=== PATIENT | male | born 1945 | race Hispanic/Latino ===

== ENCOUNTER 2018-06-21 13:51 | Inpatient (IN) | payer MEDICARE ==
[2018-06-21 13:51] VITALS: PULSE 54
--- NOTE | 2018-06-21 14:46 | ED PDOC ---
Arrival/HPI - General Historian: Patient - History of Present Illness Narrative History of Present Illness (Text): 06/21/18 14:42 A 73 year old male, whose past medical history includes CHF and A- Fib, on Coumadin, presents to the emergency department with a complaint of nausea, vomiting, diarrhea. Patient reports that his symptoms started last night. He states that his niece was having vomiting and diarrhea all day yesterday in the house and now he is feeling sick. He reports 7 episodes of vomiting and 12 episodes of diarrhea. Pt denies hematochezia or hematemesis. He also states that he feels fatigued and a dry mouth. The patient notes that he has had a dry cough for about 2 months with mild nasal congestion. Patient with a history of chronic back pain, which patient states was diagnosed as sciatica. He reports not taking any medications for his symptoms. Patient is concerned because he has been unable to take his daily medications due to the recurrent vomiting. He denies fevers, chills, headache, dizziness, chest pain, shortness of breath, dyspnea on exertion, cough, abdominal pain, neck pain, urinary changes, or any other complaint. Time/Duration: Other (Last Night) Symptom Onset: Sudden Symptom Course: Unchanged Activities at Onset: Rest, Light Context: Home <Denise Salcedo - Last Filed: 06/21/18 20:12> <Adonis Triana - Last Filed: 06/22/18 12:38> - General Chief Complaint: GI Problem Time Seen by Provider: 06/21/18 13:55 Past Medical History - Provider Review Nursing Documentation Reviewed: Yes - Infectious Disease Hx of Infectious Diseases: None - Cardiac Hx Congestive Heart Failure: Yes - Pulmonary Hx Respiratory Disorders: Yes Hx Chronic Obstructive Pulmonary Disease (COPD): Yes - Neurological Hx Paralysis: No - HEENT Hx HEENT Disorder: Yes (using eye glasses) - Renal Hx Renal Disorder: No - Endocrine/Metabolic Hx Endocrine Disorders: Yes Hx Hypothyroidism: Yes - Hematological/Oncological Hx Blood Transfusions: No Hx Blood Transfusion Reaction: No - Integumentary Hx Dermatological Disorder: No - Musculoskeletal/Rheumatological Hx Musculoskeletal Disorders: Yes (pain left hip) - Gastrointestinal Hx Gastrointestinal Disorders: No - Genitourinary/Gynecological Hx Genitourinary Disorders: No - Psychiatric Hx Psychophysiologic Disorder: No Hx Substance Use: No - Anesthesia Hx Anesthesia Reactions: No Hx Malignant Hyperthermia: No <Denise Salcedo - Last Filed: 06/21/18 20:12> Family/Social History - Physician Review Nursing Documentation Reviewed: Yes Family/Social History: No Known Family HX Smoking Status: Never Smoked Hx Alcohol Use: Yes (QUIT X 1 MONTH) Hx Substance Use: No <Denise Salcedo - Last Filed: 06/21/18 20:12> Allergies/Home Meds <Denise Salcedo - Last Filed: 06/21/18 20:12> <Adonis Triana - Last Filed: 06/22/18 12:38> Allergies/Adverse Reactions: Allergies No Known Allergies Allergy (Verified 04/06/15 13:40) Home Medications: Home Meds Medication Instructions Recorded Confirmed Warfarin [Coumadin] 5 mg PO DAILY 04/06/15 06/21/18 Amlodipine Besylate [Norvasc] 5 mg PO DAILY 11/28/15 06/21/18 Furosemide [Lasix] 40 mg PO DAILY 11/28/15 06/21/18 Levothyroxine [Synthroid] 112 mcg PO DAILY 11/28/15 06/21/18 RX: Benazepril HCl 20 mg PO DAILY 11/28/15 06/21/18 RX: Metoprolol Tartrate 50 mg PO BID 11/28/15 06/21/18 RX: Pravastatin Sodium 20 mg PO DAILY 11/28/15 06/21/18 Review of Systems - Physician Review All systems were reviewed & negative as marked: Yes - Review of Systems Constitutional: Fatigue, Fevers ENT: Sinus Congestion. absent: Sore Throat Respiratory: Cough (x 2 months). absent: SOB Cardiovascular: absent: Chest Pain, TORRES Gastrointestinal: Diarrhea, Nausea, Vomiting. absent: Abdominal Pain, Hematochezia, Hematemesis Genitourinary Male: absent: Dysuria, Frequency, Hematuria, Urinary Output Changes Musculoskeletal: Back Pain. absent: Arthralgias, Neck Pain Neurological: absent: Headache, Dizziness Psychiatric: absent: Anxiety, Depression <Denise Salcedo - Last Filed: 06/21/18 20:12> Physical Exam Vital Signs Reviewed: Yes Vital Signs Temp Pulse Resp BP Pulse Ox 06/21/18 13:52 100.8 F H 105 H 20 137/95 H 95 Temperature: Febrile Blood Pressure: Hypertensive Pulse: Tachycardic Respiratory Rate: Normal Appearance: Positive for: Well-Appearing, Non-Toxic, Comfortable Pain Distress: None Mental Status: Positive for: Alert and Oriented X 3 - Systems Exam Head: Present: Atraumatic, Normocephalic Pupils: Present: PERRL Extroacular Muscles: Present: EOMI Conjunctiva: Present: Normal Mouth: Present: Dry, Normal Lips. No: Moist Mucous Membranes, Drooling, Trismus Pharnyx: Present: Normal Nose (External): Present: Atraumatic Nose (Internal): Present: Normal Inspection, Clear Mucous Neck: Present: Normal Range of Motion Respiratory/Chest: Present: Clear to Auscultation, Good Air Exchange. No: Respiratory Distress, Accessory Muscle Use Cardiovascular: Present: Tachycardic. No: Murmurs Abdomen: Present: Normal Bowel Sounds. No: Tenderness (Non-tender), Distention, Peritoneal Signs, Rebound, Guarding Rectal: Present: Occult Blood, Normal Rectal Tone. No: Gross Blood, Melena, Hemorrhoids, Fissures Back: Present: Normal Inspection (Non-tender) Upper Extremity: Present: Normal Inspection. No: Cyanosis, Edema Lower Extremity: Present: Normal Inspection. No: Edema Neurological: Present: GCS=15, Speech Normal Skin: Present: Warm, Dry, Normal Color. No: Rashes Psychiatric: Present: Alert, Oriented x 3 <AzoiaDenise T - Last Filed: 06/21/18 20:12> Vital Signs Temp Pulse Resp BP Pulse Ox 06/21/18 19:01 72 19 118/52 L 97 06/21/18 18:08 18 06/21/18 17:42 88 127/60 06/21/18 17:35 99 H 19 127/60 94 L 06/21/18 16:25 100.1 F H 110 H 20 113/66 95 06/21/18 16:00 103 H 20 115/64 96 06/21/18 15:40 111 H 20 136/79 96 06/21/18 15:25 99 H 20 129/57 L 94 L 06/21/18 15:00 117 H 20 125/65 92 L 06/21/18 14:15 101 H 19 137/95 H 93 L 06/21/18 13:52 100.8 F H 105 H 20 137/95 H 95 <TolericoAdonis - Last Filed: 06/22/18 12:38> Medical Decision Making ED Course and Treatment: 06/21/18 14:47 A 73 year old male presents to the emergency department with a complaint of nausea, vomiting,diarrhea since last night. 18 month old child with same symptoms yesterday. Plan: -- EKG -- Chest X-ray -- Urinalysis -- Blood/ Urine Culture -- Labs -- Tylenol, Zofran, and IV Fluids -- Reassess and disposition Progress Notes: abdomen is soft non tender, non distended. 06/21/18 15:08 code sepsis called. pt given 250cc ns bolus; pt was not given 30cc/kg fluids as patient has hx of chf with BNP of 1970 in er. 06/21/18 15:56 UA: blood and urine cultures pending; pt started on vancomycin and zosyn. case discussed with dr. muir; accepts admission pt with heme positive stools; INR 5.66. pt doubled up his coumadin friday night. vitamin K IV ordered. case discussed with dr. muir; she does not want Vitamin k to be given. will cancel vitamin k. at this point and hold coumadin. impression: sepsis, nausea/vomiting, diarrhea supratherapeutic INR admit. - Lab Interpretations I have reviewed the lab results: Yes - RAD Interpretation Radiology Orders: 06/21/18 14:33 CHEST PORTABLE [RAD] Stat - EKG Interpretation Interpreted by ED Physician: Yes Type: 12 lead EKG - Medication Orders Current Medication Orders: Sodium Chloride (Sodium Chloride 0.9%) 250 mls @ 250 mls/hr IV .Q1H MISSY Ondansetron HCl (Zofran Inj) 4 mg IVP STAT STA Stop: 06/21/18 14:41 Discontinued Medications Acetaminophen (Tylenol 325mg Tab) 975 mg PO STAT STA Stop: 06/21/18 14:36 <Denise Salcedo - Last Filed: 06/21/18 20:12> - Lab Interpretations Lab Results: pO2 152 mm/Hg (30-55) H 06/21/18 17:35 VBG pH 7.46 (7.32-7.43) H 06/21/18 17:35 VBG pCO2 33.0 (40-60) L 06/21/18 17:35 VBG HCO3 23.5 mmol/l (21-28) 06/21/18 17:35 VBG Total CO2 24.5 mmol.L (22-28) 06/21/18 17:35 VBG O2 Sat (Calc) 99.4 % (40-65) H 06/21/18 17:35 VBG Base Excess 0.3 mmol/L (0.0-2.0) 06/21/18 17:35 VBG Potassium 3.5 mmol/L (3.6-5.2) L 06/21/18 17:35 Sodium 138.0 mmol/L (132-148) 06/21/18 17:35 Chloride 104.0 mmol/L (98-107) 06/21/18 17:35 Glucose 126 mg/dl (75-110) H 06/21/18 17:35 Lactate 1.4 mmol/L (0.7-2.1) 06/21/18 17:35 FiO2 21.0 % 06/21/18 17:35 PT 80.9 SECONDS (9.4-12.5) H 06/22/18 05:30 INR 6.77 H* 06/22/18 05:30 APTT 46.6 Seconds (25.1-36.5) H 06/22/18 05:30 Troponin I < 0.01 ng/mL 06/21/18 14:25 NT-Pro-B Natriuret Pep 1970 pg/mL (0-450) H 06/21/18 14:25 Total Bilirubin 0.5 mg/dL (0.2-1.3) 06/22/18 05:30 AST 26 U/L (17-59) 06/22/18 05:30 ALT 36 U/L (7-56) 06/22/18 05:30 Alkaline Phosphatase 65 U/L (38-126) 06/22/18 05:30 Total Protein 6.3 g/dL (5.8-8.3) 06/22/18 05:30 Albumin 3.4 g/dL (3.0-4.8) 06/22/18 05:30 Globulin 2.9 gm/dL 06/22/18 05:30 Albumin/Globulin Ratio 1.1 (1.1-1.8) 06/22/18 05:30 Urine Color Dark yellow (YELLOW) 06/21/18 18:50 Urine Appearance Slight-cloudy (CLEAR) 06/21/18 18:50 Urine pH 8.5 (4.7-8.0) 06/21/18 18:50 Ur Specific [place] 1.015 (1.005-1.035) 06/21/18 18:50 Urine Protein 100 mg/dL (<30 mg/dL) H 06/21/18 18:50 Urine Glucose (UA) 100 mg/dL (NEGATIVE) H 06/21/18 18:50 Urine Ketones Trace mg/dL (NEGATIVE) H 06/21/18 18:50 Urine Blood Negative (NEGATIVE) 06/21/18 18:50 Urine Nitrate Positive (NEGATIVE) H 06/21/18 18:50 Urine Bilirubin Small (NEGATIVE) H 06/21/18 18:50 Urine Urobilinogen 1.0 E.U./dL (<1 E.U./dL) H 06/21/18 18:50 Ur Leukocyte Esterase Trace Shane/uL (NEGATIVE) H 06/21/18 18:50 Urine RBC Negative /hpf (0-2) 06/21/18 18:50 Urine WBC 0 - 2 /hpf (0-6) 06/21/18 18:50 Ur Epithelial Cells 0 - 2 /hpf (0-5) 06/21/18 18:50 Urine Bacteria Mod /hpf (NONE) 06/21/18 18:50 Hyaline Casts 0 - 2 /hpf (NONE) 06/21/18 18:50 Fine Granular Casts 0 - 2 /hpf (NONE) 06/21/18 18:50 - RAD Interpretation Radiology Orders: 06/21/18 14:33 CHEST PORTABLE [RAD] Stat - Medication Orders Current Medication Orders: Acetaminophen (Tylenol 325mg Tab) 650 mg PO Q6H PRN PRN Reason: Pain, Mild (1-3) Amlodipine Besylate (Norvasc) 5 mg PO DAILY [facility] Last Admin: 06/22/18 09:10 Dose: 5 mg MAR Pulse and Blood Pressure Document 06/22/18 09:10 HG (Rec: 06/22/18 09:10 HG [id number]) Pulse Pulse Rate (60-90) 107 Blood Pressure Blood Pressure (100/60-150/90) 126/80 Atorvastatin Calcium (Lipitor) 10 mg PO DAILY [facility] Furosemide (Lasix) 40 mg PO DAILY [facility] Last Admin: 06/22/18 09:09 Dose: 40 mg MAR Blood Pressure Document 06/22/18 09:09 HG (Rec: 06/22/18 09:09 HG [id number]) Blood Pressure Blood Pressure (100/60-150/90) 126/80 Ceftriaxone Sodium (Rocephin 1 Gram Ivpb) 1 gm in 100 mls @ 100 mls/hr IVPB DAILY [facility]; Protocol Last Admin: 06/22/18 09:10 Dose: 100 mls/hr eMAR Start Stop Document 06/22/18 09:10 HG (Rec: 06/22/18 09:10 HG [id number]) Intravenous Solution Start Date 06/22/18 Start Time 09:10 End Date 06/22/18 End time 10:10 Total Infusion Time 60 Metronidazole (Flagyl) 500 mg in 100 mls @ 100 mls/hr IVPB Q8 MISSY; Protocol Last Admin: 06/22/18 06:06 Dose: 100 mls/hr eMAR Start Stop Document 06/22/18 06:06 KOPPS (Rec: 06/22/18 06:06 KOPPS [id number]) Intravenous Solution Start Date 06/22/18 Start Time 06:06 End Date 06/22/18 End time 07:06 Total Infusion Time 60 Levothyroxine Sodium (Synthroid) 112 mcg PO 0600 [facility] Last Admin: 06/22/18 06:06 Dose: 112 mcg Lisinopril (Zestril) 10 mg PO DAILY [facility] Last Admin: 06/22/18 09:09 Dose: 10 mg MAR Pulse and Blood Pressure Document 06/22/18 09:09 HG (Rec: 06/22/18 09:09 HG [id number]) Pulse Pulse Rate (60-90) 107 Blood Pressure Blood Pressure (100/60-150/90) 126/80 Metoprolol Tartrate (Lopressor) 50 mg PO BID [facility] Last Admin: 06/22/18 11:12 Dose: 50 mg MAR Pulse and Blood Pressure Document 06/22/18 11:12 HG (Rec: 06/22/18 11:12 HG [id number]) Pulse Pulse Rate (60-90) 97 Blood Pressure Blood Pressure (100/60-150/90) 126/80 Discontinued Medications Acetaminophen (Tylenol 325mg Tab) 975 mg PO STAT STA Stop: 06/21/18 14:36 Last Admin: 06/21/18 15:03 Dose: 975 mg MAR Pain/Vitals Document 06/21/18 15:03 EB (Rec: 06/21/18 15:03 [email or web address]) Pain Reassessment Is This A Pain ReAssessment? No Sleep Is patient sleeping during reassessment? No Re-Assess: MAR Pain/Vitals Document 06/21/18 16:03 EB (Rec: 06/21/18 17:41 EB [id number]) Presence of Pain Presence of Pain No Sodium Chloride (Sodium Chloride 0.9%) 250 mls @ 250 mls/hr IV .Q1H MISSY Stop: 06/21/18 15:45 Last Admin: 06/21/18 15:45 Dose: Not Given Non-Admin Reason: only need 1 bolus Piperacillin Sod/Tazobactam Sod (Zosyn 3.375 In Ns 100ml) 100 mls @ 200 mls/hr IVPB STAT STA; Protocol Stop: 06/21/18 16:05 Last Admin: 06/21/18 16:22 Dose: 200 mls/hr eMAR Start Stop Document 06/21/18 16:22 EB (Rec: 06/21/18 16:22 [email or web address]) Intravenous Solution Start Date 06/21/18 Start Time 16:22 End Date 06/21/18 End time 17:22 Total Infusion Time 60 Vancomycin HCl (Vancomycin 1gm) 1 gm in 250 mls @ 167 mls/hr IVPB STAT STA; Protocol Stop: 06/21/18 17:19 Last Admin: 06/21/18 16:27 Dose: 167 mls/hr eMAR Start Stop Document 06/21/18 16:27 EB (Rec: 06/21/18 16:28 [email or web address]) Intravenous Solution Start Date 06/21/18 Start Time 16:57 Metoprolol Tartrate (Lopressor) 50 mg PO STAT STA Stop: 06/21/18 16:59 Last Admin: 06/21/18 17:42 Dose: 50 mg MAR Pulse and Blood Pressure Document 06/21/18 17:42 EB (Rec: 06/21/18 17:42 [email or web address]) Pulse Pulse Rate (60-90) 88 Blood Pressure Blood Pressure (100/60-150/90) 127/60 Ondansetron HCl (Zofran Inj) 4 mg IVP STAT STA Stop: 06/21/18 14:41 Last Admin: 06/21/18 15:03 Dose: 4 mg IVP Administration Document 06/21/18 15:03 EB (Rec: 06/21/18 15:03 [email or web address]) Charges for Administration # of IVP Administrations 1 <Adonis Triana - Last Filed: 06/22/18 12:38> - Scribe Statement The provider has reviewed the documentation as recorded by the Scribe Mera Shaffer Provider Fatouibe Attestation: All medical record entries made by the Scribe were at my direction and personally dictated by me. I have reviewed the chart and agree that the record accurately reflects my personal performance of the history, physical exam, medical decision making, and the department course for this patient. I have also personally directed, reviewed, and agree with the discharge instructions and disposition. <Denise Salcedo - Last Filed: 06/21/18 20:12> - PA / SCRUB TECH / Resident Statement MD/ has reviewed & agrees with the documentation as recorded. <Adonis Triana - Last Filed: 06/22/18 12:38> Disposition/Present on Arrival - Present on Arrival Any Indicators Present on Arrival: No History of DVT/PE: No History of Uncontrolled Diabetes: No Urinary Catheter: No History of Decub. Ulcer: No History Surgical Site Infection Following: None - Disposition Have Diagnosis and Disposition been Completed?: Yes Disposition Time: 15:08 Patient Plan: Observation <Denise Salcedo - Last Filed: 06/21/18 20:12> <Adonis Triana - Last Filed: 06/22/18 12:38> - Disposition Diagnosis: Sepsis, Nausea vomiting and diarrhea, Supratherapeutic INR Disposition: HOSPITALIZED Patient Problems: Current Active Problems Problem Status Onset Nausea vomiting and diarrhea Acute Sepsis Acute Supratherapeutic INR Acute Condition: FAIR
[2018-06-21 14:50] LABS: GRAN # 9.34 (1.4-6.5); GRAN % 95.5 % (50.0-68.0); HEMOGLOBIN 16.2 g/dL (14.0-18.0); LYMPH # 0.3 (1.2-3.4); LYMPH % 3.3 % (22.0-35.0); MEAN CELL VOLUME 97.5 fl (80.0-105.0); MEAN CORPUSCULAR HEMOGLOBIN 33.5 pg (25.0-35.0); MEAN CORPUSCULAR HGB CONC 34.3 g/dl (31.0-37.0); MEAN PLATELET VOLUME 9.9 fl (7.0-11.0); MONO # 0.1 (0.1-0.6); MONO % 1.2 % (1.0-6.0); PLATELET COUNT 193 10^3/uL (120.0-450.0); RBC 4.84 10^6/uL (3.5-6.1); RED CELL DISTRIBUTION WIDTH 13.3 % (11.5-14.5); WHITE BLOOD COUNT 9.8 10^3/uL (4.5-11.0)
[2018-06-21 14:53] LABS: VENOUS BLOOD GAS BASE EXCESS -2.3 mmol/L (0.0-2.0); VENOUS BLOOD GAS PO2 84 mm/Hg (30-55); VENOUS BLOOD PH 7.43 (7.32-7.43)
[2018-06-21] MEDS: Sodium Chloride 0.9% 250 ML IV SCH ×2 (15:04→15:45)
--- NOTE | 2018-06-21 15:07 | RAD ---
Date of service: 06/21/2018 HISTORY: cough/fever/vomiting COMPARISON: 04/08/2015 FINDINGS: LUNGS: No active pulmonary disease. PLEURA: No significant pleural effusion identified, no pneumothorax apparent. CARDIOVASCULAR: No aortic atherosclerotic calcification present. Mild cardiomegaly no pulmonary vascular congestion. OSSEOUS STRUCTURES: No significant abnormalities. VISUALIZED UPPER ABDOMEN: Normal. OTHER FINDINGS: None. IMPRESSION: No active disease.
[2018-06-21 15:09] LABS: PARTIAL THROMBOPLASTIN TIME 43.3 Seconds (25.1-36.5)
--- NOTE | 2018-06-21 15:10 | PCM.SEPTIC ---
Sepsis Progress Note - Reassessment Type Date of Evaluation: 06/21/18 Time of Evaluation: 19:13 Reassessment Type: Non-invasive reassessment - Non Invasive Reassessment Were the most recent vital sign reviewed: Yes Vital Sign (Latest): Temp Pulse Resp BP Pulse Ox 100.8 F H 105 H 20 137/95 H 95 06/21/18 13:52 06/21/18 13:52 06/21/18 13:52 06/21/18 13:52 06/21/18 13:52 Cardiovascular: Yes: Regular Rate, Rhythm. No: Edema, Murmur Respiratory: Yes: Normal Breath Sounds. No: Accessory Muscle Use Capillary Refill: Normal (Less than 2 sec) Skin: Normal Color, Warm, Dry - Invasive Reassessment (complete 2 of 4) Was a Central Venous Pressure Measurement obtained within 6 Hours after the presentation of septic shock: No Was a central venous oxygen measurement obtained within 6 hours after the presentation of septic shock: No Was a bedside cardiovascular ultrasound performed within 6 hours after the presentation of septic shock: No Was a passive leg raise performed or was a fluid challenge performed within 6 hrs of the initial fluid bolus: No Fluid Challenge performed: Yes
[2018-06-21 15:12] LABS: ALB/GLOB RATIO 1.4 (1.1-1.8); ALBUMIN 4.2 g/dL (3.0-4.8); ALT/SGPT 30 U/L (7-56); AST/SGOT 27 U/L (17-59); BLOOD UREA NITROGEN 22 mg/dL (7-21); CALCIUM 9.5 mg/dL (8.4-10.5); GFR NON-AFRICAN AMERICAN 59
[2018-06-21 15:13] LABS: B-TYPE NATRIURETIC PEPTIDE 1970 pg/mL (0-450); TROPONIN I < 0.01 ng/mL
[2018-06-21 15:25] LABS: LYMPHOCYTE 4 % (22.0-35.0); MONOCYTE 1 % (1.0-6.0); NEUTROPHIL 95 % (50.0-70.0)
[2018-06-21 15:26] LABS: ANISOCYTOSIS SLIGHT; PLATELET ESTIMATE NORMAL (NORMAL)
[2018-06-21] MEDS ORDERED: Piperacillin/Tazobact 3.375 gm 100 ML IVPB STA (15:36)
[2018-06-21] MEDS ORDERED: Vancomycin 1gm in NS 250ml 1 GM/250 ML BAG IVPB STA (15:50)
[2018-06-21 16:01] LABS: INR 5.66; PROTHROMBIN TIME 66.8 SECONDS (9.4-12.5)
[2018-06-21] MEDS ORDERED: Phytonadione 10 MG in Sodium Chloride 0.9% 50 ML IV ONE (16:53)
[2018-06-21] MEDS ORDERED: Sodium Chloride 0.9% 1,000 ML IV STA (16:54)
--- NOTE | 2018-06-21 17:14 | CP.PCM.HP ---
<HarishValentino Jan - Last Filed: 06/21/18 17:51> History of Present Illness - History of Present Illness History of Present Illness: Valentino Moreira PGY1, History and Physical for Dr Tang Pt is a 73yo male with a PMH of HTN, hypothyroidsim, HLD, CHF, atrial fibrillation on Coumadin, who presents to the emergency department with the complaint of nausea, vomiting, diarrhea. Patient reports that his symptoms started last night. He states that his 18 month old niece was vomiting and diarrhea all day yesterday in the house and now he is feeling sick. He reports 7 episodes of vomiting and 12 episodes of diarrhea. Pt denies blood in his vomit or in the stool. Pt did not try anything to make the symptoms better. Pt states he forgot to take his coumadin , and took an extra dose Friday morning. Pt denies fever, chills, dizziness, chest pain, or SOB. PMH: HTN, hypothyroidsim, HLD, CHF, atrial fibrillation on Coumadin PSH: denies FH: mother 88 dementia, father 56 lung cancer SH: denies tobacco, denies alcohol, denies drugs, lives with his cousin in [place], retired [employer] Home meds: warfarin 5, pravastatin 20, metoprolol 50 BID, levothyroxine 112, lasix 40PO, Benazepril 20, amlodipine 5 PMD: Dr Florez Cardio: Dr Carranza Present on Admission - Present on Admission Any Indicators Present on Admission: No Review of Systems - Review of Systems Review of Systems: a 12 point ROS was obtained and added to the HPI where appropriate Past Patient History - Infectious Disease Hx of Infectious Diseases: None - Past Social History Smoking Status: Never Smoked - CARDIAC Hx Congestive Heart Failure: Yes - PULMONARY Hx Respiratory Disorders: Yes Hx Chronic Obstructive Pulmonary Disease (COPD): Yes - NEUROLOGICAL Hx Paralysis: No - HEENT Hx HEENT Problems: Yes (using eye glasses) - RENAL Hx Chronic Kidney Disease: No - ENDOCRINE/METABOLIC Hx Endocrine Disorders: Yes Hx Hypothyroidism: Yes - HEMATOLOGICAL/ONCOLOGICAL Hx Blood Transfusions: No Hx Blood Transfusion Reaction: No - INTEGUMENTARY Hx Dermatological Problems: No - MUSCULOSKELETAL/RHEUMATOLOGICAL Hx Musculoskeletal Disorders: Yes (pain left hip) - GASTROINTESTINAL Hx Gastrointestinal Disorders: No - GENITOURINARY/GYNECOLOGICAL Hx Genitourinary Disorders: No - PSYCHIATRIC Hx Psychophysiologic Disorder: No Hx Substance Use: No - SURGICAL HISTORY Hx Surgeries: Yes - ANESTHESIA Hx Anesthesia Reactions: No Hx Malignant Hyperthermia: No Meds Allergies/Adverse Reactions: Allergies Allergy/AdvReac Type Severity Reaction Status Date / Time No Known Allergies Allergy Verified 04/06/15 13:40 Physical Exam - Head Exam Head Exam: ATRAUMATIC, NORMOCEPHALIC - Eye Exam Eye Exam: EOMI, PERRL - ENT Exam ENT Exam: Mucous Membranes Moist - Neck Exam Neck exam: Positive for: Normal Inspection - Respiratory Exam Respiratory Exam: Clear to Auscultation Bilateral, NORMAL BREATHING PATTERN - Cardiovascular Exam Cardiovascular Exam: +S1, +S2. absent: Diastolic murmur, Systolic Murmur - GI/Abdominal Exam GI & Abdominal Exam: Normal Bowel Sounds, Soft - Extremities Exam Extremities exam: Positive for: full ROM. Negative for: calf tenderness, pedal edema - Neurological Exam Neurological exam: Alert, Oriented x3 - Psychiatric Exam Psychiatric exam: Normal Affect, Normal Mood - Skin Skin Exam: Dry, Intact, Warm Results - Vital Signs Recent Vital Signs: Last Vital Signs Temp 100.1 F H 06/21/18 16:25 Pulse 110 H 06/21/18 16:25 Resp 20 06/21/18 16:25 BP 113/66 06/21/18 16:25 Pulse Ox 95 06/21/18 16:25 - Labs Result Diagrams: 06/21/18 14:25 06/21/18 14:25 Labs: Laboratory Results - last 24 hr 06/21/18 06/21/18 06/21/18 14:25 14:25 14:25 WBC 9.8 RBC 4.84 Hgb 16.2 Hct 47.2 MCV 97.5 MCH 33.5 MCHC 34.3 RDW 13.3 Plt Count 193 MPV 9.9 Gran % 95.5 H Lymph % (Auto) 3.3 L [place] % (Auto) 1.2 Eos % (Auto) 0.0 L Baso % (Auto) 0.0 Gran # 9.34 H Lymph # (Auto) 0.3 L [place] # (Auto) 0.1 Eos # (Auto) 0.0 Baso # (Auto) 0.00 Neutrophils % (Manual) 95 H Lymphocytes % (Manual) 4 L Monocytes % (Manual) 1 Platelet Evaluation Normal Anisocytosis (manual) Slight PT INR APTT pO2 84 H VBG pH 7.43 VBG pCO2 32.0 L VBG HCO3 21.2 VBG Total CO2 22.2 VBG O2 Sat (Calc) 98.0 H VBG Base Excess -2.3 L VBG Potassium 3.6 Sodium 136.0 137 Chloride 102.0 104 Glucose 178 H Lactate 2.4 H FiO2 21.0 Potassium 3.9 Carbon Dioxide 22 Anion Gap 15 BUN 22 H Creatinine 1.2 Est GFR ( Amer) > 60 Est GFR (Non-Af Amer) 59 Random Glucose 169 H Calcium 9.5 Total Bilirubin 0.8 AST 27 ALT 30 Alkaline Phosphatase 87 Lactate Dehydrogenase 630 Total Creatine Kinase 43 Troponin I < 0.01 NT-Pro-B Natriuret Pep 1970 H Total Protein 7.2 Albumin 4.2 Globulin 2.9 Albumin/Globulin Ratio 1.4 Venous Blood Potassium 3.6 Influenza Typ A,B (EIA) 06/21/18 06/21/18 14:25 15:12 WBC RBC Hgb Hct MCV MCH MCHC RDW Plt Count MPV Gran % Lymph % (Auto) [place] % (Auto) Eos % (Auto) Baso % (Auto) Gran # Lymph # (Auto) [place] # (Auto) Eos # (Auto) Baso # (Auto) Neutrophils % (Manual) Lymphocytes % (Manual) Monocytes % (Manual) Platelet Evaluation Anisocytosis (manual) PT 66.8 H INR 5.66 H* APTT 43.3 H pO2 VBG pH VBG pCO2 VBG HCO3 VBG Total CO2 VBG O2 Sat (Calc) VBG Base Excess VBG Potassium Sodium Chloride Glucose Lactate FiO2 Potassium Carbon Dioxide Anion Gap BUN Creatinine Est GFR ( Amer) Est GFR (Non-Af Amer) Random Glucose Calcium Total Bilirubin AST ALT Alkaline Phosphatase Lactate Dehydrogenase Total Creatine Kinase Troponin I NT-Pro-B Natriuret Pep Total Protein Albumin Globulin Albumin/Globulin Ratio Venous Blood Potassium Influenza Typ A,B (EIA) Negative for flu a/b Assessment & Plan - Assessment and Plan (Free Text) Assessment: Pt is a 73yo male with a PMH of HTN, hypothyroidsim, HLD, CHF, atrial fibrillation on Coumadin, who presents to the emergency department with the complaint of nausea, vomiting, diarrhea. Plan: Intractable Nausea, Vomiting - at this time, symptoms seem to be related to gastroenteritis, family member at home with similar symptoms - 100.1F - blood cultures - urine cultures - flagyl - rocephin - zofran - Clear liquid diet CHF - lasix 40 PO - metoprolol 50 BID Atrial Fibrillation - hold Coumadin, INR 5.66 - will recheck INR tomorrow morning and evaluate if pt should have coumadin restarted - Cardio consulted, Dr Guerra HTN - amlodipine 5 - Pt take benzapril 20 at home, we do not carry in house, we will convert to lisinopril - lisinopril 10 Hypothyroidsim - synthroid 112 Ppx - hold DVT ppx at this time, due to INR 5.66 Pt seen, examined, assessment and plan discussed with Dr Kitty Moreira PGY1, Internal Medicine Resident - Date & Time Date: 06/21/18 Time: 17:29 <Maurice Tang - Last Filed: 06/25/18 16:27> Results - Vital Signs Recent Vital Signs: Last Vital Signs Temp 97.9 F 06/23/18 11:57 Pulse 96 H 06/23/18 11:57 Resp 20 06/23/18 11:57 BP 134/88 06/23/18 11:57 Pulse Ox 94 L 06/23/18 06:00 - Labs Result Diagrams: 06/23/18 07:00 06/23/18 07:00 Attending/Attestation - Attestation I have personally seen and examined this patient.: Yes I have fully participated in the care of the patient.: Yes I have reviewed all pertinent clinical information: Yes Notes (Text): 06/25/18 16:24 Attending note; patient seen and examined with resident In ER. Patient is alert and awake. complaining of abdominal discomfort and nausea and vomiting. Patient had diarrhea yesterday. code sepsis was called secondary to fever, tachycardia and elevated lactic acid. Acute viral gastroenteritis suspected. Started on IV Rocephin and Flagyl. Monitor closely. Elevated INR; hold Coumadin. No active bleeding noted. admit to telemetry. A. fib; continue metoprolol. Hypertension; continue Norvasc and lisinopril. Upon discharge the patient will follow up with PMD Dr. Xiong.
[2018-06-21 17:44] LABS: VENOUS BLOOD GAS BASE EXCESS 0.3 mmol/L (0.0-2.0); VENOUS BLOOD GAS PO2 152 mm/Hg (30-55); VENOUS BLOOD PH 7.46 (7.32-7.43)
[2018-06-21 18:08] VITALS: BMI 36.5
[2018-06-21] MEDS: metroNIDAZOLE IV 500 mg/100 ml 500 MG/100 ML BAG IVPB SCH ×2 (18:38→21:50)
[2018-06-21 19:02] LABS: PH,URINE 8.5 (4.7-8.0); URINE APPEARANCE SLIGHT-CLOUDY (CLEAR); URINE BILIRUBIN SMALL (NEGATIVE); URINE BLOOD NEGATIVE (NEGATIVE); URINE COLOR DARK YELLOW (YELLOW); URINE GLUCOSE (UA) 100 mg/dL (NEGATIVE); URINE LEUKOCYTE ESTERASE TRACE Leu/uL (NEGATIVE); URINE PROTEIN 100 mg/dL (<30 mg/dL)
[2018-06-21 19:05] LABS: URINE RBC NEGATIVE /hpf (0-2); URINE WBC 0 - 2 /hpf (0-6)
[2018-06-21 19:06] LABS: URINE BACTERIA MOD /hpf; URINE EPITHELIAL CELLS 0 - 2 /hpf (0-5); URINE FINE GRANULAR CAST 0 - 2 /hpf; URINE HYALINE CAST 0 - 2 /hpf
[2018-06-21] MEDS: cefTRIAXone 1 gm 1 GM/100 ML BAG IVPB SCH (19:49)
[2018-06-22] MEDS: Levothyroxine 112 MCG TAB PO SCH (06:06)
[2018-06-22] MEDS: metroNIDAZOLE IV 500 mg/100 ml 500 MG/100 ML BAG IVPB SCH ×2 (06:06→13:34)
[2018-06-22 06:32] LABS: BASO # 0.01 K/mm3 (0.0-2.0); BASO % 0.1 % (0.0-3.0); EOS % 0.4 % (1.5-5.0); GRAN # 5.89 (1.4-6.5); HEMOGLOBIN 15.2 g/dL (14.0-18.0); LYMPH # 0.9 (1.2-3.4); LYMPH % 12.6 % (22.0-35.0); MEAN CELL VOLUME 99.3 fl (80.0-105.0); MEAN CORPUSCULAR HEMOGLOBIN 33.1 pg (25.0-35.0); MEAN CORPUSCULAR HGB CONC 33.3 g/dl (31.0-37.0); MONO # 0.2 (0.1-0.6); MONO % 2.9 % (1.0-6.0); RBC 4.59 10^6/uL (3.5-6.1); RED CELL DISTRIBUTION WIDTH 13.7 % (11.5-14.5)
[2018-06-22 06:41] LABS: PARTIAL THROMBOPLASTIN TIME 46.6 Seconds (25.1-36.5)
[2018-06-22 06:56] LABS: PROTHROMBIN TIME 80.9 SECONDS (9.4-12.5)
[2018-06-22 06:58] LABS: ALB/GLOB RATIO 1.1 (1.1-1.8); ALBUMIN 3.4 g/dL (3.0-4.8); ALT/SGPT 36 U/L (7-56); AST/SGOT 26 U/L (17-59); BLOOD UREA NITROGEN 21 mg/dL (7-21); CALCIUM 8.8 mg/dL (8.4-10.5); GFR NON-AFRICAN AMERICAN 54
[2018-06-22 06:59] LABS: INR 6.77
[2018-06-22] MEDS: Furosemide 40 mg/5 mL Oral Soln UD PO SCH (09:09)
[2018-06-22] MEDS: cefTRIAXone 1 gm 1 GM/100 ML BAG IVPB SCH (09:10)
--- NOTE | 2018-06-22 10:40 | CARD ---
APPROVED REPORT Date of service: 06/21/2018 EKG Measurement Heart [id number] <Conclusion> Atrial fibrillation with rapid ventricular response with premature ventricular or aberrantly conducted complexes Incomplete right bundle branch block ST & T Changes. Abnormal ECG
--- NOTE | 2018-06-22 14:52 | CON ---
DATE: 06/22/2018 HISTORY: This is a 73-year-old man, known to us with a history of chronic atrial fibrillation who developed nausea, vomiting, and diarrhea. Recently, he has been exposed to an [id number] relative who is cared for in daycare and had the similar symptoms. After multiple episodes of vomiting and diarrhea, he became weak and lightheaded, and presents to the emergency room. He apparently missed 1 dose of warfarin recently and took double dose the day prior to admission. His INR was elevated upon admission. He denies any syncope. He is unaware of palpitations. He does have a history of hypertension, hypothyroidism, hyperlipidemia, and chronic atrial fibrillation. MEDICATIONS: At home include amlodipine 5 mg daily, benazepril 20 mg daily, Lasix 40 mg daily, levothyroxine 112 mcg daily, metoprolol 50 mg two times a day, warfarin, and pravastatin 20 mg daily. ALLERGIES: NONE. SOCIAL HISTORY: He does not smoke or drink. He is retired. FAMILY HISTORY: Father from lung cancer in his 50s. Mother from complications of dementia in her 80s. REVIEW OF SYSTEMS: A 10-point review of systems is notable mainly for the problems mentioned above. PHYSICAL EXAMINATION GENERAL: He is a healthy-appearing middle-aged man. VITAL SIGNS: His blood pressure was 126/80 with a pulse of 70-90 with atrial fibrillation, respirations are 16. He is afebrile. HEENT: Normocephalic and atraumatic. NECK: No JVD. CHEST: A few scattered rhonchi heard. HEART: Rhythm is irregularly irregular with a systolic murmur at lower left sternal border. ABDOMEN: Soft, nontender, normoactive bowel sounds. EXTREMITIES: No clubbing, cyanosis, or edema. SKIN: Warm and dry. PSYCHIATRIC: Normal mood and affect. NEUROLOGIC: Alert and oriented x3. No gross motor or sensory deficits present. DIAGNOSTIC DATA: Potassium is 3.8. BUN and creatinine are 21 and 1.3. White count 7.0, hemoglobin and hematocrit are 15.2 and 45.6 with platelet count of 151,000. Initial INR was 5.66, repeat is 6.77. Influenza serology was negative. Electrocardiogram reveals atrial fibrillation with nonspecific ST-T abnormalities. Premature ventricular beats, complex as noted with an incomplete right bundle-branch block as well. Chest x-ray reveals a large cardiac silhouette with clear lung lombardo. IMPRESSION: 1. Chronic atrial fibrillation with inadequate heart rate control. 2. Elevated INR, possibly due to recent increased dosing as well as elimination of gut ck with recent diarrhea. 3. Probable viral gastroenteritis. 4. Rest of problems as noted. RECOMMENDATIONS: His Coumadin will remain on hold pending a followup INR; however, the rest of his medications can continue unchanged. IV fluid should continue for now. He was cautioned against doubling up anticoagulant therapy and instructed that should he miss a dose, he should just resume his regimen with his next scheduled dose. Thank you for this consultation. I would be happy to follow along as needed. Alfonso Josue MD MTDD
--- NOTE | 2018-06-22 18:48 | CP.PCM.PN ---
<Valentino Moreira - Last Filed: 06/22/18 19:00> Subjective - Date & Time of Evaluation Date of Evaluation: 06/22/18 Time of Evaluation: 08:00 - Subjective Subjective: Pt seen and examined. Pt denies vomiting, admits to 2 episodes of loose stool. Objective - Vital Signs/Intake and Output Vital Signs (last 24 hours): Temp Pulse Resp BP Pulse Ox 97.6 F 90 19 115/74 99 06/22/18 18:00 06/22/18 18:00 06/22/18 18:00 06/22/18 18:00 06/22/18 12:00 Intake and Output: 06/22/18 06/22/18 06:59 18:59 Intake Total 480 Balance 480 - Medications Medications: Current Medications Acetaminophen (Tylenol 325mg Tab) 650 mg PO Q6H PRN PRN Reason: Pain, Mild (1-3) Amlodipine Besylate (Norvasc) 5 mg PO DAILY [facility] Last Admin: 06/22/18 09:10 Dose: 5 mg Atorvastatin Calcium (Lipitor) 10 mg PO DAILY [facility] Furosemide (Lasix) 40 mg PO DAILY [facility] Last Admin: 06/22/18 09:09 Dose: 40 mg Levothyroxine Sodium (Synthroid) 112 mcg PO 0600 [facility] Last Admin: 06/22/18 06:06 Dose: 112 mcg Lisinopril (Zestril) 10 mg PO DAILY [facility] Last Admin: 06/22/18 09:09 Dose: 10 mg Metoprolol Tartrate (Lopressor) 50 mg PO BID [facility] Last Admin: 06/22/18 17:52 Dose: 50 mg - Labs Labs: 06/22/18 05:30 06/22/18 05:30 PT 80.9 SECONDS (9.4-12.5) H 06/22/18 05:30 INR 6.77 H* 06/22/18 05:30 APTT 46.6 Seconds (25.1-36.5) H 06/22/18 05:30 - Constitutional Appears: No Acute Distress - Head Exam Head Exam: ATRAUMATIC, NORMOCEPHALIC - Eye Exam Eye Exam: EOMI - ENT Exam ENT Exam: Mucous Membranes Moist - Respiratory Exam Respiratory Exam: Clear to Ausculation Bilateral, NORMAL BREATHING PATTERN. absent: Accessory Muscle Use - Cardiovascular Exam Cardiovascular Exam: Irregular Rhythm, +S2. absent: Diastolic murmur, Murmur - GI/Abdominal Exam GI & Abdominal Exam: Soft, Normal Bowel Sounds - Extremities Exam Extremities Exam: Full ROM. absent: Calf Tenderness - Neurological Exam Neurological Exam: Alert, Awake, Oriented x3 - Psychiatric Exam Psychiatric exam: Normal Affect, Normal Mood - Skin Skin Exam: Dry, Intact, Warm Assessment and Plan - Assessment and Plan (Free Text) Assessment: Pt is a 73yo male with a PMH of HTN, hypothyroidsim, HLD, CHF, atrial fibrillation on Coumadin, who presents to the emergency department with the comp laint of nausea, vomiting, diarrhea. Plan: Intractable Nausea, Vomiting - likely gastroenteritis, family member at home with similar symptoms - blood cultures NGTD - urine cultures NGTD - flagyl - rocephin - zofran - heart healthy diet - c diff negative - Stool O/P, if negative tomorrow, will dc antibiotics CHF - lasix 40 PO - metoprolol 50 BID Atrial Fibrillation - hold Coumadin, INR 6.7 - will continue to monitor for signs of bleeding - Cardio consulted, Dr Guerra HTN - amlodipine 5 - Pt take benzapril 20 at home, we do not carry in house, we will convert to lisinopril - lisinopril 10 Hypothyroidsim - synthroid 112 Ppx - hold DVT ppx at this time, due to INR 6.7 Pt seen, examined, assessment and plan discussed with Dr Deng Moreira PGY1, Internal Medicine Resident <Andrea Vilchis - Last Filed: 06/23/18 16:47> Objective - Vital Signs/Intake and Output Vital Signs (last 24 hours): Temp Pulse Resp BP Pulse Ox 97.9 F 96 H 20 134/88 94 L 06/23/18 11:57 06/23/18 11:57 06/23/18 11:57 06/23/18 11:57 06/23/18 06:00 Intake and Output: 06/23/18 06/23/18 06:59 18:59 Intake Total 240 Balance 240 - Labs Labs: 06/23/18 07:00 06/23/18 07:00 PT 51.0 SECONDS (9.4-12.5) H 06/23/18 07:00 INR 4.30 H* 06/23/18 07:00 APTT 45.8 Seconds (25.1-36.5) H 06/23/18 07:00 Attending/Attestation - Attestation I have personally seen and examined this patient.: Yes I have fully participated in the care of the patient.: Yes I have reviewed all pertinent clinical information, including history, physical exam and plan: Yes Notes (Text): 73 y/o M with PMH of A. fib (on coumadin), HTN, CHF and hypothyroidism admitted for nausea, vomiting and dirrhea. Pt also noted to have supratherapeutic INR. Pt was started on rocephin and flagyl, stool work up was negative for C. diff. Stool is getting more formed, will DC abx. INR of 6.7, continue to hold coumadin. monitor INR daily.
[2018-06-23 00:20] VITALS: RESP 20
[2018-06-23 06:41] VITALS: O2SAT 94
[2018-06-23] MEDS: Levothyroxine 112 MCG TAB PO SCH (07:04)
[2018-06-23 07:32] LABS: BASO # 0.02 K/mm3 (0.0-2.0); BASO % 0.3 % (0.0-3.0); EOS # 0.2 (0.0-0.7); EOS % 2.5 % (1.5-5.0); GRAN # 3.79 (1.4-6.5); LYMPH # 1.7 (1.2-3.4); LYMPH % 28.9 % (22.0-35.0); MEAN CELL VOLUME 98.5 fl (80.0-105.0); MEAN CORPUSCULAR HEMOGLOBIN 32.8 pg (25.0-35.0); MEAN CORPUSCULAR HGB CONC 33.3 g/dl (31.0-37.0); MEAN PLATELET VOLUME 10.4 fl (7.0-11.0); MONO # 0.3 (0.1-0.6); MONO % 5.3 % (1.0-6.0); RBC 4.58 10^6/uL (3.5-6.1); RED CELL DISTRIBUTION WIDTH 13.4 % (11.5-14.5)
[2018-06-23 07:37] LABS: PARTIAL THROMBOPLASTIN TIME 45.8 Seconds (25.1-36.5)
[2018-06-23 07:45] LABS: ALB/GLOB RATIO 1.1 (1.1-1.8); ALBUMIN 3.4 g/dL (3.0-4.8); ALT/SGPT 27 U/L (7-56); AST/SGOT 28 U/L (17-59); BLOOD UREA NITROGEN 19 mg/dL (7-21); CALCIUM 8.7 mg/dL (8.4-10.5); GFR NON-AFRICAN AMERICAN > 60
[2018-06-23 08:09] LABS: INR 4.3
[2018-06-23] MEDS: Furosemide 40 mg/5 mL Oral Soln UD PO SCH (10:09)
[2018-06-23 11:58] VITALS: BP 134/88; PULSE 96; TEMP 97.9
--- NOTE | 2018-06-23 21:56 | CP.PCM.DIS ---
<HarishValentino Jan - Last Filed: 06/23/18 21:59> Provider - Provider Date of Admission: 06/21/18 16:04 Attending physician: Andrea Vilchis MD Primary care physician: Ashley Xiong MD Consults: 06/21/18 16:50 Physician Consult Routine Comment: Consulting Provider: Rubens Guerra Consulting Physician: Rubens Guerra Reason for Consult: INR 5.6, follows pt Time Spent in preparation of Discharge (in minutes): 35 Diagnosis - Discharge Diagnosis (1) Nausea vomiting and diarrhea Status: Acute Priority: High (2) CHF (congestive heart failure) Status: Chronic Priority: High (3) HTN (hypertension) Status: Chronic Priority: High (4) Hypothyroid Status: Chronic Priority: High Hospital Course - Lab Results Lab Results: Micro Results 06/21/18 15:12 Blood Blood Culture - Preliminary NO GROWTH AFTER 48 HOURS 06/21/18 14:45 Blood Blood Culture - Preliminary NO GROWTH AFTER 48 HOURS 06/22/18 15:00 Stool Ova and Parasite Concentrate Exam - Final 06/21/18 18:50 Urine Urine Culture - Preliminary Gram Negative G[place] 06/22/18 00:13 Stool C. difficile Antigen & Toxins A,B - Final Most Recent Lab Values WBC 6.0 10^3/uL (4.5-11.0) 06/23/18 07:00 RBC 4.58 10^6/uL (3.5-6.1) 06/23/18 07:00 Hgb 15.0 g/dL (14.0-18.0) 06/23/18 07:00 Hct 45.1 % (42.0-52.0) 06/23/18 07:00 MCV 98.5 fl (80.0-105.0) 06/23/18 07:00 MCH 32.8 pg (25.0-35.0) 06/23/18 07:00 MCHC 33.3 g/dl (31.0-37.0) 06/23/18 07:00 RDW 13.4 % (11.5-14.5) 06/23/18 07:00 Plt Count 158 10^3/uL (120.0-450.0) 06/23/18 07:00 MPV 10.4 fl (7.0-11.0) 06/23/18 07:00 Gran % 63.0 % (50.0-68.0) 06/23/18 07:00 Lymph % (Auto) 28.9 % (22.0-35.0) 06/23/18 07:00 [place] % (Auto) 5.3 % (1.0-6.0) 06/23/18 07:00 Eos % (Auto) 2.5 % (1.5-5.0) 06/23/18 07:00 Baso % (Auto) 0.3 % (0.0-3.0) 06/23/18 07:00 Gran # 3.79 (1.4-6.5) 06/23/18 07:00 Lymph # (Auto) 1.7 (1.2-3.4) 06/23/18 07:00 [place] # (Auto) 0.3 (0.1-0.6) 06/23/18 07:00 Eos # (Auto) 0.2 (0.0-0.7) 06/23/18 07:00 Baso # (Auto) 0.02 K/mm3 (0.0-2.0) 06/23/18 07:00 Neutrophils % (Manual) 95 % (50.0-70.0) H 06/21/18 14:25 Lymphocytes % (Manual) 4 % (22.0-35.0) L 06/21/18 14:25 Monocytes % (Manual) 1 % (1.0-6.0) 06/21/18 14:25 Platelet Evaluation Normal (NORMAL) 06/21/18 14:25 Anisocytosis (manual) Slight 06/21/18 14:25 PT 51.0 SECONDS (9.4-12.5) H 06/23/18 07:00 INR 4.30 H* 06/23/18 07:00 APTT 45.8 Seconds (25.1-36.5) H 06/23/18 07:00 pO2 152 mm/Hg (30-55) H 06/21/18 17:35 VBG pH 7.46 (7.32-7.43) H 06/21/18 17:35 VBG pCO2 33.0 (40-60) L 06/21/18 17:35 VBG HCO3 23.5 mmol/l (21-28) 06/21/18 17:35 VBG Total CO2 24.5 mmol.L (22-28) 06/21/18 17:35 VBG O2 Sat (Calc) 99.4 % (40-65) H 06/21/18 17:35 VBG Base Excess 0.3 mmol/L (0.0-2.0) 06/21/18 17:35 VBG Potassium 3.5 mmol/L (3.6-5.2) L 06/21/18 17:35 Sodium 138.0 mmol/L (132-148) 06/21/18 17:35 Chloride 104.0 mmol/L (98-107) 06/21/18 17:35 Glucose 126 mg/dl (75-110) H 06/21/18 17:35 Lactate 1.4 mmol/L (0.7-2.1) 06/21/18 17:35 FiO2 21.0 % 06/21/18 17:35 Sodium 139 mmol/L (132-148) 06/23/18 07:00 Potassium 3.7 mmol/L (3.6-5.0) 06/23/18 07:00 Chloride 105 mmol/L (98-107) 06/23/18 07:00 Carbon Dioxide 28 mmol/L (21-33) 06/23/18 07:00 Anion Gap 10 (10-20) 06/23/18 07:00 BUN 19 mg/dL (7-21) 06/23/18 07:00 Creatinine 1.1 mg/dl (0.8-1.5) 06/23/18 07:00 Est GFR ( Amer) > 60 06/23/18 07:00 Est GFR (Non-Af Amer) > 60 06/23/18 07:00 Random Glucose 82 mg/dL (70-110) 06/23/18 07:00 Calcium 8.7 mg/dL (8.4-10.5) 06/23/18 07:00 Total Bilirubin 0.5 mg/dL (0.2-1.3) 06/23/18 07:00 AST 28 U/L (17-59) 06/23/18 07:00 ALT 27 U/L (7-56) 06/23/18 07:00 Alkaline Phosphatase 65 U/L (38-126) 06/23/18 07:00 Lactate Dehydrogenase 630 U/L (333-699) 06/21/18 14:25 Total Creatine Kinase 43 U/L (35-230) 06/21/18 14:25 Troponin I < 0.01 ng/mL 06/21/18 14:25 NT-Pro-B Natriuret Pep 1970 pg/mL (0-450) H 06/21/18 14:25 Total Protein 6.5 g/dL (5.8-8.3) 06/23/18 07:00 Albumin 3.4 g/dL (3.0-4.8) 06/23/18 07:00 Globulin 3.0 gm/dL 06/23/18 07:00 Albumin/Globulin Ratio 1.1 (1.1-1.8) 06/23/18 07:00 Venous Blood Potassium 3.5 mmol/L (3.6-5.2) L 06/21/18 17:35 Urine Color Dark yellow (YELLOW) 06/21/18 18:50 Urine Appearance Slight-cloudy (CLEAR) 06/21/18 18:50 Urine pH 8.5 (4.7-8.0) 06/21/18 18:50 Ur Specific [place] 1.015 (1.005-1.035) 06/21/18 18:50 Urine Protein 100 mg/dL (<30 mg/dL) H 06/21/18 18:50 Urine Glucose (UA) 100 mg/dL (NEGATIVE) H 06/21/18 18:50 Urine Ketones Trace mg/dL (NEGATIVE) H 06/21/18 18:50 Urine Blood Negative (NEGATIVE) 06/21/18 18:50 Urine Nitrate Positive (NEGATIVE) H 06/21/18 18:50 Urine Bilirubin Small (NEGATIVE) H 06/21/18 18:50 Urine Urobilinogen 1.0 E.U./dL (<1 E.U./dL) H 06/21/18 18:50 Ur Leukocyte Esterase Trace Shane/uL (NEGATIVE) H 06/21/18 18:50 Urine RBC Negative /hpf (0-2) 06/21/18 18:50 Urine WBC 0 - 2 /hpf (0-6) 06/21/18 18:50 Ur Epithelial Cells 0 - 2 /hpf (0-5) 06/21/18 18:50 Urine Bacteria Mod /hpf (NONE) 06/21/18 18:50 Hyaline Casts 0 - 2 /hpf (NONE) 06/21/18 18:50 Fine Granular Casts 0 - 2 /hpf (NONE) 06/21/18 18:50 Influenza Typ A,B (EIA) Negative for flu a/b (NEGATIVE) 06/21/18 15:12 - Hospital Course Hospital Course: Upon Arrival Pt is a 73yo male with a PMH of HTN, hypothyroidsim, HLD, CHF, atrial fibrillation on Coumadin, who presents to the emergency department with the complaint of nausea, vomiting, diarrhea. Patient reports that his symptoms started last night. He states that his 18 month old niece was vomiting and diarrhea all day yesterday in the house and now he is feeling sick. He reports 7 episodes of vomiting and 12 episodes of diarrhea. Pt denies blood in his vomit or in the stool. Hospitalization Pt was treated with antibiotics. His INR was supratheraputic, it was monitored while coumadin was held. Discharge Please follow up with primary care doctor, Dr. Xiong, within 3-5 days of discharge. Recheck INR within 2-[address] Guerra. INR was high today 4.30. Please do not take Coumadin until your INR has been re-checked. Continue all other home medications as prescribed. Drink plenty of water while having loose stool. If your symptoms return, please go to the nearest emergency department. - Date & Time of H&P Date of H&P: 06/23/18 Time of H&P: 08:00 Discharge Exam - Head Exam Head Exam: ATRAUMATIC, NORMOCEPHALIC - Eye Exam Eye Exam: EOMI - ENT Exam ENT Exam: Mucous Membranes Moist - Respiratory Exam Respiratory Exam: NORMAL BREATHING PATTERN. absent: Respiratory Distress - Cardiovascular Exam Cardiovascular Exam: RRR, +S1, +S2. absent: Diastolic murmur, Systolic Murmur - GI/Abdominal Exam GI & Abdominal Exam: Normal Bowel Sounds - Extremities Exam Extremities exam: full ROM - Neurological Exam Neurological exam: Oriented x3 - Psychiatric Exam Psychiatric exam: Normal Affect, Normal Mood - Skin Skin Exam: Dry, Intact, Warm Discharge Plan - Follow Up Plan Condition: FAIR Disposition: HOME/ ROUTINE Instructions: Sepsis in Adults, Tachycardia, What to Do When Your INR Is Too High Additional Instructions: Please follow up with your primary care doctor, Dr. Xiong, within 3-5 days of discharge. You will need to recheck your INR within 2-[address] Guerra. Your INR was high today 4.30. Please do not take your Coumadin until your INR has been re-checked. Continue all other home medications as prescribed. Drink plenty of water while having loose stool. If your symptoms return, please go to the nearest emergency department. Referrals: Rubens Guerra MD [Staff Provider] - Ashley Guillory MD [Primary Care Provider] - <Andrea Vilchis - Last Filed: 06/26/18 22:48> Provider - Provider Date of Admission: 06/21/18 16:04 Attending physician: Andrea Vilchis MD Primary care physician: Ashley Xiong MD Consults: 06/21/18 16:50 Physician Consult Routine Comment: Consulting Provider: Rubens Guerra Consulting Physician: Rubens Guerra Reason for Consult: INR 5.6, follows pt Hospital Course - Lab Results Lab Results: Micro Results 06/21/18 15:12 Blood Blood Culture - Final NO GROWTH AFTER 5 DAYS 06/21/18 15:12 Blood Gram Stain - Final TEST NOT PERFORMED 06/21/18 14:45 Blood Blood Culture - Final NO GROWTH AFTER 5 DAYS 06/21/18 14:45 Blood Gram Stain - Final TEST NOT PERFORMED 06/21/18 18:50 Urine Urine Culture - Final Proteus Mirabilis 06/22/18 15:00 Stool Ova and Parasite Concentrate Exam - Final 06/22/18 00:13 Stool C. difficile Antigen & Toxins A,B - Final Most Recent Lab Values WBC 6.0 10^3/uL (4.5-11.0) 06/23/18 07:00 RBC 4.58 10^6/uL (3.5-6.1) 06/23/18 07:00 Hgb 15.0 g/dL (14.0-18.0) 06/23/18 07:00 Hct 45.1 % (42.0-52.0) 06/23/18 07:00 MCV 98.5 fl (80.0-105.0) 06/23/18 07:00 MCH 32.8 pg (25.0-35.0) 06/23/18 07:00 MCHC 33.3 g/dl (31.0-37.0) 06/23/18 07:00 RDW 13.4 % (11.5-14.5) 06/23/18 07:00 Plt Count 158 10^3/uL (120.0-450.0) 06/23/18 07:00 MPV 10.4 fl (7.0-11.0) 06/23/18 07:00 Gran % 63.0 % (50.0-68.0) 06/23/18 07:00 Lymph % (Auto) 28.9 % (22.0-35.0) 06/23/18 07:00 [place] % (Auto) 5.3 % (1.0-6.0) 06/23/18 07:00 Eos % (Auto) 2.5 % (1.5-5.0) 06/23/18 07:00 Baso % (Auto) 0.3 % (0.0-3.0) 06/23/18 07:00 Gran # 3.79 (1.4-6.5) 06/23/18 07:00 Lymph # (Auto) 1.7 (1.2-3.4) 06/23/18 07:00 [place] # (Auto) 0.3 (0.1-0.6) 06/23/18 07:00 Eos # (Auto) 0.2 (0.0-0.7) 06/23/18 07:00 Baso # (Auto) 0.02 K/mm3 (0.0-2.0) 06/23/18 07:00 Neutrophils % (Manual) 95 % (50.0-70.0) H 06/21/18 14:25 Lymphocytes % (Manual) 4 % (22.0-35.0) L 06/21/18 14:25 Monocytes % (Manual) 1 % (1.0-6.0) 06/21/18 14:25 Platelet Evaluation Normal (NORMAL) 06/21/18 14:25 Anisocytosis (manual) Slight 06/21/18 14:25 PT 51.0 SECONDS (9.4-12.5) H 06/23/18 07:00 INR 4.30 H* 06/23/18 07:00 APTT 45.8 Seconds (25.1-36.5) H 06/23/18 07:00 pO2 152 mm/Hg (30-55) H 06/21/18 17:35 VBG pH 7.46 (7.32-7.43) H 06/21/18 17:35 VBG pCO2 33.0 (40-60) L 06/21/18 17:35 VBG HCO3 23.5 mmol/l (21-28) 06/21/18 17:35 VBG Total CO2 24.5 mmol.L (22-28) 06/21/18 17:35 VBG O2 Sat (Calc) 99.4 % (40-65) H 06/21/18 17:35 VBG Base Excess 0.3 mmol/L (0.0-2.0) 06/21/18 17:35 VBG Potassium 3.5 mmol/L (3.6-5.2) L 06/21/18 17:35 Sodium 138.0 mmol/L (132-148) 06/21/18 17:35 Chloride 104.0 mmol/L (98-107) 06/21/18 17:35 Glucose 126 mg/dl (75-110) H 06/21/18 17:35 Lactate 1.4 mmol/L (0.7-2.1) 06/21/18 17:35 FiO2 21.0 % 06/21/18 17:35 Sodium 139 mmol/L (132-148) 06/23/18 07:00 Potassium 3.7 mmol/L (3.6-5.0) 06/23/18 07:00 Chloride 105 mmol/L (98-107) 06/23/18 07:00 Carbon Dioxide 28 mmol/L (21-33) 06/23/18 07:00 Anion Gap 10 (10-20) 06/23/18 07:00 BUN 19 mg/dL (7-21) 06/23/18 07:00 Creatinine 1.1 mg/dl (0.8-1.5) 06/23/18 07:00 Est GFR ( Amer) > 60 06/23/18 07:00 Est GFR (Non-Af Amer) > 60 06/23/18 07:00 Random Glucose 82 mg/dL (70-110) 06/23/18 07:00 Calcium 8.7 mg/dL (8.4-10.5) 06/23/18 07:00 Total Bilirubin 0.5 mg/dL (0.2-1.3) 06/23/18 07:00 AST 28 U/L (17-59) 06/23/18 07:00 ALT 27 U/L (7-56) 06/23/18 07:00 Alkaline Phosphatase 65 U/L (38-126) 06/23/18 07:00 Lactate Dehydrogenase 630 U/L (333-699) 06/21/18 14:25 Total Creatine Kinase 43 U/L (35-230) 06/21/18 14:25 Troponin I < 0.01 ng/mL 06/21/18 14:25 NT-Pro-B Natriuret Pep 1970 pg/mL (0-450) H 06/21/18 14:25 Total Protein 6.5 g/dL (5.8-8.3) 06/23/18 07:00 Albumin 3.4 g/dL (3.0-4.8) 06/23/18 07:00 Globulin 3.0 gm/dL 06/23/18 07:00 Albumin/Globulin Ratio 1.1 (1.1-1.8) 06/23/18 07:00 Venous Blood Potassium 3.5 mmol/L (3.6-5.2) L 06/21/18 17:35 Urine Color Dark yellow (YELLOW) 06/21/18 18:50 Urine Appearance Slight-cloudy (CLEAR) 06/21/18 18:50 Urine pH 8.5 (4.7-8.0) 06/21/18 18:50 Ur Specific [place] 1.015 (1.005-1.035) 06/21/18 18:50 Urine Protein 100 mg/dL (<30 mg/dL) H 06/21/18 18:50 Urine Glucose (UA) 100 mg/dL (NEGATIVE) H 06/21/18 18:50 Urine Ketones Trace mg/dL (NEGATIVE) H 06/21/18 18:50 Urine Blood Negative (NEGATIVE) 06/21/18 18:50 Urine Nitrate Positive (NEGATIVE) H 06/21/18 18:50 Urine Bilirubin Small (NEGATIVE) H 06/21/18 18:50 Urine Urobilinogen 1.0 E.U./dL (<1 E.U./dL) H 06/21/18 18:50 Ur Leukocyte Esterase Trace Shane/uL (NEGATIVE) H 06/21/18 18:50 Urine RBC Negative /hpf (0-2) 06/21/18 18:50 Urine WBC 0 - 2 /hpf (0-6) 06/21/18 18:50 Ur Epithelial Cells 0 - 2 /hpf (0-5) 06/21/18 18:50 Urine Bacteria Mod /hpf (NONE) 06/21/18 18:50 Hyaline Casts 0 - 2 /hpf (NONE) 06/21/18 18:50 Fine Granular Casts 0 - 2 /hpf (NONE) 06/21/18 18:50 Influenza Typ A,B (EIA) Negative for flu a/b (NEGATIVE) 06/21/18 15:12 Attending/Attestation - Attestation I have personally seen and examined this patient.: Yes I have fully participated in the care of the patient.: Yes I have reviewed all pertinent clinical information, including history, physical exam and plan: Yes
--- NOTE | 2018-06-25 16:31 | PQF ---
PROVIDER RESPONSE TEXT: patient has acute gastroenteritis. Has nausea vomiting and diarrhea. REVIEWER QUERY TEXT: Acuity Specificity is documented in the Medical Record. Please specify the acuity of this condition with terms s uch as: -- Acute -- Chronic -- Acute and chronic -- Acute on chronic -- Other (please specify in the medical record) The patient's Clinical Indicators include: Consult noted "Probable viral gastroenteritis" please document if you concur. Query created by: Shari Laura on 06/24/2018 4:29 PM Electronically signed by: Maurice Tang MD 06/25/2018 4:28 PM
== END 2018-06-23 15:11 | disposition home or self-care (01) | DRG 392 ==
LOC: ED 13:51 → ERH 16:04 → 2RSO 21:01
PROVIDERS: ADMIT Internal Medicine; ATTEND Hospitalist
DX: K52.9 Noninfective gastroenteritis and colitis, unspecified (principal); I11.0 Hypertensive heart disease with heart failure; I50.9 Heart failure, unspecified; I48.2 Chronic atrial fibrillation; M54.30 Sciatica, unspecified side; G89.29 Other chronic pain; E03.9 Hypothyroidism, unspecified; J44.9 Chronic obstructive pulmonary disease, unspecified; R79.1 Abnormal coagulation profile; Z79.01 Long term (current) use of anticoagulants; Z80.1 Family history of malignant neoplasm of trachea, bronchus and lung